=== PATIENT | female | born 1980 | race Caucasian/White ===

== ENCOUNTER 2017-04-28 16:50 | Outpatient (CLI) | payer OTHER | END 2017-04-28 16:52 | LOC: LABRHC 16:50 | PROVIDERS: ATTEND Physician Assistant | DX: R30.0 Dysuria (principal) | CPT/HCPCS: 87086 ==

== ENCOUNTER 2017-10-14 22:54 | Emergency (ER) | payer OTHER ==
--- NOTE | 2017-10-14 23:01 | ED Physician Documentation ---
Seizure - HISTORIAN Historian: patient - HPI Stated Complaint: seizure Chief Complaint: Seizure Timing/Onset/Duration: single episode, other (per by standers she had a 1 min long seizure ) Last known Well Date: 10/14/17 Last Known Well Time: 21:00 Last known Well Code/Unknown Code: Known Witnessed By: bystander Preceding Symptoms: other ("I didnt feel right before it happened" ) Character of Seizure(s): lost consciousness, unresponsiveness Postictal Symptoms: confusion Location of Injury: none Further Comments: yes (She states she did add three shots of alcohol to her slushy before she drank it. She was just getting to a rodeo and felt funny and then remembers waking in the ambulance. Denies an aura before with her history of seizures. She states she has not had a seizure for years and stopped her meds due to no seizures. She denies any pain. Just feels tired) - ROS NEURO/PSYCH: denies: headache, fainting, dizziness EYES/ENT: none CVS/RESP: none GI/: denies: nausea, vomiting MS/SKIN/LYMPH: none - PAST HX Previous seizure/seizure disorder: other (over 10 years ago ) Etiology: ethanol abuse (although states she has had alcohol in past with no seizures ) Other History: none Surgeries/Procedures: none Immunizations: UTD Allergies/Adverse Reactions: Allergies Allergy/AdvReac Type Severity Reaction Status Date / Time sulfamethoxazole Allergy Unverified 07/09/14 14:30 [From Bactrim] trimethoprim [From Bactrim] Allergy Unverified 07/09/14 14:30 - SOCIAL HX Smoking History: cigarettes Alcohol Use: occasionally Drug Use: none - FAMILY HX Family History: none - VITAL SIGNS Vital Signs: Vital Signs Temp Pulse Resp BP Pulse Ox 98.8 F 77 14 115/72 98 10/14/17 22:55 10/15/17 01:18 10/15/17 01:18 10/15/17 01:18 10/15/17 01:18 - REVIEWED ASSESSMENTS Nursing Assessment Reviewed: Yes Vitals Reviewed: Yes ED Results Lab/Radiology - Lab Results Lab Results: Lab Results 10/14/17 10/14/17 23:22 23:21 WBC 10.20 K/ul K/ul (4.00-12.00) RBC 4.51 M/ul M/ul (3.90-5.20) Hgb 14.2 g/dL g/dL (12.0-16.0) Hct 42.3 % % (34.5-46.5) MCV 93.9 fl fl (80.0-100.0) MCH 31.5 pg pg (28.0-34.0) MCHC 33.5 g/dL g/dL (30.0-36.0) RDW 12.8 % % (11.3-14.3) Plt Count 241 K/mm3 K/mm3 (130-400) Neut % (Auto) 72.4 % % (39.0-79.0) Lymph % (Auto) 17.7 % % (16.0-50.0) [place] % (Auto) 6.6 % % (0.0-11.0) Eos % (Auto) 1.2 % % (0.0-6.8) Baso % (Auto) 0.3 (0.0-1.5) Neut # (Auto) 7.4 # k/uL # k/uL (1.4-7.7) Lymph # (Auto) 1.8 # k/uL # k/uL (0.6-4.0) [place] # (Auto) 0.7 # k/uL # k/uL (0.0-0.9) Eos # (Auto) 0.1 # k/uL # k/uL (0.0-0.6) Baso # (Auto) 0.0 # k/uL # k/uL (0.0-0.5) Reactive Lymphs % 1.9 % % (0.0-5.0) Reactive Lymphs # 0.2 # k/uL # k/uL (0.0-0.8) Sodium 136 mmol/L mmol/L (136-145) Potassium 3.2 mmol/L L mmol/L (3.5-5.1) Chloride 107 mmol/L mmol/L (98-107) Carbon Dioxide 19 mmol/L L mmol/L (22-30) BUN 8 mg/dL mg/dL (7-17) Creatinine 0.60 mg/dL mg/dL (0.52-1.04) Est GFR ( Amer) > 60 (60 - ) Est GFR (Non-Af Amer) > 60 (60 - ) Glucose 96 mg/dL mg/dL (74-106) Calcium 8.8 mg/dL mg/dL (8.4-10.2) Total Bilirubin < 0.1 mg/dL L mg/dL (0.2-1.3) AST 18 U/L U/L (15-46) ALT 23 U/L U/L (13-69) Alkaline Phosphatase 64 U/L U/L (38-126) Total Protein 7.2 g/dL g/dL (6.3-8.2) Albumin 4.1 g/dL g/dL (3.5-5.0) Ethyl Alcohol 44.4 mg/dL H mg/dL (0.0-10.0) - Orders Orders: ED Orders Category Date Time Status ALCOHOL MEDICAL USE ONLY Stat Lab 10/14/17 23:21 Completed CBC/PLATELET/DIFF Stat Lab 10/14/17 23:22 Completed CMP Stat Lab 10/14/17 23:21 Completed Seizure Physical Exam - Physical Exam General Appearance: no acute distress, alert Altered Mental Status Higher Functions: alert, oriented x3, no evidence of acute CVA, mood/affect nml EENT: nml eye inspection, PERRL Neck/Back: normal inspection Respiratory: no resp. distress, breath sounds nml, no evidence of rib injury CVS: reg rate & rhythm, heart sounds normal, equal pulses, no murmur Abdomen: non-tender, no organomegaly, nml bowel sounds Skin: warm/dry, normal color Extremities: normal range of motion, non-tender, normal inspection Observed Seizure Activity in ED: awake - Nexus Criteria Neg Nexus Criteria: Nexus criteria neg Discharge Clincal Impression: Seizure Referrals: Ana Edmonds MD [STAFF PHYSICIAN] - 2 Days Comments: 1. Follow up with PCP Monday 2. Return to ER for any concerns 3. Increase fluids 4. No Alcohol Condition: Stable Disposition: 01 HOME, SELF-CARE Decision to Admit: NO Date of Decison to Admit: 10/14/17 Decision Time: 23:47
[2017-10-14 23:31] LABS: BASOPHILS % 0.3 (0.0-1.5); EOSINOPHILS % 1.2 % (0.0-6.8); MEAN CORPUSCULAR HEMOGLOBIN 31.5 pg (28.0-34.0); MEAN CORPUSCULAR VOLUME 93.9 fl (80.0-100.0); MONOCYTES % 6.6 % (0.0-11.0); NEUTROPHILS # 7.4 # k/uL (1.4-7.7)
[2017-10-14 23:38] LABS: eGFR (African) > 60; eGFR (Non-African) > 60
[2017-10-15 01:22] VITALS: BP 115/72
== END 2017-10-14 23:56 | disposition home or self-care (01) ==
LOC: ED 22:54
DX: G40.909 Epilepsy, unspecified, not intractable, without status epilepticus (principal)
CPT/HCPCS: 80053; 80320; 85025; G0480